=== PATIENT | male | born 1985 | race Caucasian/White ===

== ENCOUNTER 2017-04-08 15:50 | Emergency (ER) | payer OTHER ==
[2017-04-08 17:27] LABS: APPEARANCE CLEAR (CLEAR); BILIRUBIN NEGATIVE (NEGATIVE); COLOR YELLOW (YELLOW); GLUCOSE NEGATIVE (NEGATIVE); KETONE NEGATIVE (NEGATIVE); LEUKOCYTE ESTERASE NEGATIVE (NEGATIVE); NITRITE NEGATIVE (NEGATIVE); PROTEIN NEGATIVE (NEGATIVE); UROBILINOGEN NORMAL (NORMAL)
[2017-04-08 17:30] LABS: BASOPHILS 0.3 % (0-2); EOSINOPHILS 2.4 % (0-7); HEMATOCRIT 40.5 % (42.0-54.0); IMMATURE GRANULOCYTES 0.1 % (0-5); LYMPHOCYTES 36.3 % (15-50); MCH 30.8 pg (26.0-34.0); MCHC 34.6 g/dL (31.0-37.0); MCV 89.2 fL (80.0-100.0); MEAN PLATELET VOLUME 10.5 fL (7.4-10.4); MONOCYTES 10.1 % (2-11); NEUTROPHILS 50.8 % (40-80); PLATELET COUNT 233 10x3/uL (130-400); RBC 4.54 10x6/uL (4.20-6.10); RDW 12.4 % (11.5-14.5); WBC 6.7 10x3/uL (4.8-10.8)
[2017-04-08 17:52] LABS: ALBUMIN 4.1 g/dL (3.4-5.0); ALKALINE PHOSPHATASE 58 U/L (46-116); ALT (SGPT) 130 U/L (10-68); BILIRUBIN - TOTAL 0.84 mg/dL (0.2-1.3); CALC OSMOLALITY 273 mosm/kg (275-300); CALCIUM 8.6 mg/dL (8.5-10.1); CARBON DIOXIDE 27.6 mmol/L (21.0-32.0); CHLORIDE - SERUM 102 mmol/L (98-107); GLUCOSE 87 mg/dL (74-106); POTASSIUM - SERUM 4.1 mmol/L (3.5-5.1); PROTEIN - SERUM 7.1 g/dL (6.4-8.2); SODIUM 138 mmol/L (136-145); UREA NITROGEN 10 mg/dL (7-18); eGFR NON AFRICAN AMERICAN > 90 mL/min (90-120)
== END 2017-04-08 18:19 | disposition home or self-care (01) ==
LOC: D.ER 15:50
PROVIDERS: Emergency Medicine
DX: G62.9 Polyneuropathy, unspecified (principal)